=== PATIENT | female | born 1995 | race Caucasian/White ===

== ENCOUNTER 2018-05-28 10:22 | Inpatient (IN) | payer MEDICAID, OTHER ==
[2018-05-28] MEDS ORDERED: OXYTOCIN 10 UNIT/ML 1 ML VIAL IM PRN (10:42)
[2018-05-28] MEDS ORDERED: LIDOCAINE 0.5% (PF) 5 MG/ML (50 ML SDV) SQ PRN (10:42)
[2018-05-28] MEDS ORDERED: TERBUTALINE 1 MG/ML VIAL SQ PRN (10:42)
[2018-05-28] MEDS ORDERED: METHYLERGONOVINE 0.2 MG/ML 1 ML AMP IM PRN (10:42)
[2018-05-28] MEDS ORDERED: CARBOPROST TROMETHAMINE 250 MCG/ML 1 ML AMP IM PRN (10:42)
[2018-05-28] MEDS ORDERED: OXYTOCIN 20 UNITS/1000 ML NS 1,000 ML IV SCH ×2 (10:45→17:45)
[2018-05-28] MEDS ORDERED: AMPICILLIN 2,000 MG in SODIUM CHLORIDE 0.9% 100 ML IVPB STA (10:46)
[2018-05-28 10:53] VITALS: BMI 30.3
[2018-05-28] MEDS: LACTATED RINGERS 1,000 ML IV SCH ×2 (11:17→14:35)
[2018-05-28 11:50] LABS: Basophils % (A) 0 %; Eosinophils # (A) 0.3 k/uL (0-0.7); Eosinophils % (A) 4 %; HCT 38.8 % (34.0-46.0); HGB 12.9 gm/dL (11.4-16.0); Lymphocytes # (A) 1.4 k/uL (1.0-4.8); Lymphocytes % (A) 15 %; MCH 30.8 pg (25.0-35.0); MCHC 33.2 g/dL (31.0-37.0); MCV 92.7 fL (80.0-100.0); Mean Platelet Volume 7.8; Monocytes # (A) 0.5 k/uL (0-1.0); Monocytes % (A) 6 %; Neutrophils # (A) 6.6 k/uL (1.3-7.7); Neutrophils % (A) 73 %; Platelet Count 177 k/uL (150-450); RBC 4.19 m/uL (3.80-5.40); RDW 12.3 % (11.5-15.5)
--- NOTE | 2018-05-28 12:18 | P.HPOB ---
History of Present Illness H&P Date: 05/28/18 Chief Complaint: Advanced cervical dilation This is a 22-year-old female 1 para 0 with an estimated date of confinement of 06/21/2018, estimated gestational age of 36-5/7 weeks, who presents to labor and delivery after being seen in the office and found to be 6 cm. She does complain of irregular contractions and pressure but denies any strong contractions. She denies any loss of fluid. Her cervix last week was 3- 1/2-4 cm. course has been complicated by anxiety issues. She was using marijuana daily for this but did stop at the end of March after having a discussion with me about this. Obstetrical history: . STAGE MANAGER History: No history of sexually transmitted diseases. Social history: She is engaged. She works part-time at [employer]. Review of Systems Constitutional: Denies chills, Denies fever Eyes: denies blurred vision, denies pain Ears, nose, mouth and throat: Denies headache, Denies sore throat Cardiovascular: Denies chest pain, Denies shortness of breath Respiratory: Denies cough Gastrointestinal: Reports abdominal pain (Irregular lower contractions) Genitourinary: Reports pelvic pain, Reports Musculoskeletal: Reports low back pain Integumentary: Denies pruritus, Denies rash Neurological: Denies numbness, Denies weakness Psychiatric: Reports anxiety, Reports depression Past Medical History Past Medical History: Asthma Additional Past Medical History / Comment(s): irritable bowel sydrome History of Any Multi-Drug Resistant Organisms: None Reported Past Surgical History: No Surgical Hx Reported Past Anesthesia/Blood Transfusion Reactions: No Reported Reaction Additional Past Anesthesia/Blood Transfusion Reaction / Comment(s): none Past Psychological History: Anxiety, Depression Smoking Status: Former smoker Past Alcohol Use History: None Reported Additional Past Alcohol Use History / Comment(s): pt quit smoking cigs when she found out she was , pt quit smoking pot in may Past Drug Use History: Cocaine, Marijuana Additional Drug Use History / Comment(s): Cocaine use daily until one year ago when she stopped. - Past Family History Mother Family Medical History: Asthma, Cancer Additional Family Medical History / Comment(s): Mother is alive at age 54 with history of breast cancer and anemia Father Family Medical History: Diabetes Mellitus, Deep Vein Thrombosis (DVT) Additional Family Medical History / Comment(s): Father is alive at age 45 with history of morbid obesity, DVT, diabetes Sister(s) Additional Family Medical History / Comment(s): She has 3 sisters and there is Anxiety and bipolar disorder and possible borderline schizophrenia. Brother(s) Additional Family Medical History / Comment(s): She has one brother that she does not have any contact with. Medications and Allergies Home Medications Medication Instructions Recorded Confirmed Type Men-Ryaa-Xdnic Acid 1 cap PO DAILY 05/28/18 05/28/18 History [-U Capsule (formulary)] Allergies Allergy/AdvReac Type Severity Reaction Status Date / Time No Known Allergies Allergy Verified 09/06/15 22:38 Exam Osteopathic Statement: *. No significant issues noted on an osteopathic structural exam other than those noted in the History and Physical/Consult. Vital Signs Temp Pulse Resp BP 05/28/18 10:40 97.1 F L 87 16 121/70 Intake and Output 05/27/18 05/28/18 05/28/18 22:59 06:59 14:59 Other: Weight 85.275 kg HEENT: Within normal limits Heart: Regular rate and rhythm Lungs: Clear to auscultation bilaterally Abdomen: Cervix: 5-1/2-6 cm/70%/-2 station heart tones: Reactive Contractions: Irregular Extremities: Negative Homans Results Result Diagrams: 05/28/18 11:23 Assessment and Plan (1) 36 weeks gestation of Current Visit: Yes Status: Acute Code(s): Z3A.36 - 36 WEEKS GESTATION OF SNOMED Code(s): 63837769 (2) Group B Streptococcus carrier, +RV culture, currently Current Visit: Yes Status: Acute Code(s): O99.820 - STREPTOCOCCUS B CARRIER STATE COMPLICATING SNOMED Code(s): 1169718974096 Plan: Admission for advanced cervical dilation. Oxytocin augmentation of labor. Antibiotic prophylaxis for group B streptococcus. Expectant management.
[2018-05-28] MEDS ORDERED: SODIUM CHLORIDE 0.9% 100 ML BAG ONE (14:27)
[2018-05-28] MEDS ORDERED: fentaNYL (PF) 50 MCG/ML 5 ML AMP ONE (14:27)
[2018-05-28] MEDS ORDERED: ROPIVACAINE 5MG/ML 20ML VIAL ONE (14:27)
[2018-05-28] MEDS ORDERED: AMPICILLIN 1,000 MG in SODIUM CHLORIDE 0.9% 50 ML IVPB SCH (14:45)
[2018-05-28] MEDS ORDERED: ROPIVACAINE 100 MG, fentaNYL (PF) 200 MCG in SODIUM CHLORIDE 0.9% 76 ML EPIDURAL ONE (14:56)
--- NOTE | 2018-05-28 16:54 | P.PROBDLV ---
Vaginal Delivery Note - . Vaginal Delivery Note: The patient progressed to complete dilation after oxytocin augmentation of labor and artificial rupture membranes with clear fluid noted. She did receive epidural anesthesia. Once reaching complete, she began pushing. Infant's head came to a crown. With one further push, the infant's head delivered across the perineum followed by the anterior shoulder. Nuchal cord times one was reduced around the infant's head and with one further push the remainder the easily delivered and was placed on mother's abdomen. Brisk cry was noted immediately. Nose and mouth were bulb suctioned. Infant was taken to warmer for evaluation by nursing staff. A viable female infant was noted with scores of 8 at 1 minute and 9 at 5 minutes and weight is 5 lbs. 9 oz. Placenta delivered shortly thereafter, intact, with a three-vessel cord. Uterus contracted well after oxytocin was given and uterine massage was carried out. Inspection of the perineum revealed a small first-degree laceration on the right vaginal wall. This area was anesthetized with 1% lidocaine and sutured with 3-0 Vicryl suture in a running locked fashion. Estimated blood loss is approximately 150 mL's. Both mother and infant are in stable condition.
[2018-05-28] MEDS ORDERED: HYDROCORTISONE 2.5% RECTAL CREAM 30 GM TUBE RECTAL PRN (17:45)
[2018-05-28] MEDS ORDERED: diphenhydrAMINE 50 MG/ML 1 ML VIAL IVP PRN ×2 (17:45)
[2018-05-28] MEDS ORDERED: WITCH HAZEL 1 EACH MED..PAD TOPICAL PRN (17:45)
[2018-05-28] MEDS ORDERED: ACETAMINOPHEN TAB 325 MG TAB PO PRN (17:45)
[2018-05-28] MEDS ORDERED: ZOLPIDEM 5 MG TAB PO PRN (17:45)
[2018-05-28] MEDS ORDERED: LANOLIN CREAM 5 GM TUBE TOPICAL PRN (17:45)
[2018-05-28] MEDS ORDERED: IBUPROFEN 600 MG TAB PO PRN (17:45)
[2018-05-28] MEDS ORDERED: diphenhydrAMINE 25 MG CAP PO PRN (17:45)
[2018-05-28] MEDS ORDERED: SIMETHICONE 80 MG CHEWABLE PO PRN (17:45)
[2018-05-28] MEDS ORDERED: BENZOCAINE/MENTHOL SPRAY 1 GM/SPRAY AEROSOL TOPICAL PRN (17:45)
[2018-05-28] MEDS ORDERED: diphenhydrAMINE 50 MG CAP PO PRN (17:45)
[2018-05-28] MEDS: SENNOSIDES-DOCUSATE SODIUM 1 EACH TAB PO SCH (20:13)
--- NOTE | 2018-05-29 08:18 | P.PNOBGVD ---
Subjective - Subjective Principal diagnosis: Status post vaginal delivery day #1 Interval history: Patient is doing well. She is breast-feeding. Lochia is decreasing. Pain is well-controlled. Patient reports: Reports appetite normal, Reports voiding normally, Reports pain well controlled, Reports ambulating normally : doing well, nursing well Objective - Latest Vital Signs Latest vital signs: Vital Signs Temp Pulse Resp BP 05/29/18 07:49 97.9 F 88 20 118/75 05/29/18 04:00 97.7 F 85 16 120/60 05/28/18 23:55 98.0 F 95 16 124/73 05/28/18 18:59 96.8 F L 89 14 122/66 05/28/18 18:29 101 H 14 114/57 05/28/18 17:59 86 12 121/63 05/28/18 17:44 85 12 127/66 05/28/18 17:29 71 14 121/66 05/28/18 17:14 83 14 119/68 05/28/18 16:59 96.9 F L 73 18 129/61 05/28/18 10:40 97.1 F L 87 16 121/70 Intake and Output 05/28/18 05/29/18 05/29/18 22:59 06:59 14:59 Other: # Voids 1 1 - Exam Extremities: Present: normal. Absent: tenderness Abdomen: Present: normal appearance, soft. Absent: distention, tenderness Uterus: Present: normal, firm. Absent: tenderness Assessment and Plan Assessment: Status post vaginal delivery day #1 (1) 36 weeks gestation of Current Visit: Yes Status: Acute Code(s): Z3A.36 - 36 WEEKS GESTATION OF SNOMED Code(s): 74877122 (2) Group B Streptococcus carrier, +RV culture, currently Current Visit: Yes Status: Acute Code(s): O99.820 - STREPTOCOCCUS B CARRIER STATE COMPLICATING SNOMED Code(s): 6607226875732 Plan: Continue with care. Anticipate discharge home tomorrow.
[2018-05-29] MEDS: SENNOSIDES-DOCUSATE SODIUM 1 EACH TAB PO SCH ×2 (08:22→21:14)
[2018-05-29] MEDS: SERTRALINE 25 MG TAB PO SCH (08:22)
[2018-05-29 09:03] LABS: Basophils % (A) 0 %; Eosinophils # (A) 0.4 k/uL (0-0.7); Eosinophils % (A) 3 %; HCT 36.1 % (34.0-46.0); HGB 12.1 gm/dL (11.4-16.0); Lymphocytes # (A) 2.1 k/uL (1.0-4.8); Lymphocytes % (A) 18 %; MCHC 33.5 g/dL (31.0-37.0); MCV 92.5 fL (80.0-100.0); Mean Platelet Volume 7.8; Monocytes # (A) 0.6 k/uL (0-1.0); Monocytes % (A) 5 %; Neutrophils # (A) 8.2 k/uL (1.3-7.7); Neutrophils % (A) 71 %; Platelet Count 192 k/uL (150-450); RDW 12.5 % (11.5-15.5); WBC 11.5 k/uL (3.8-10.6)
[2018-05-29] MEDS ORDERED: PRENATAL VIT-IRON-FOLIC ACID 1 EACH CAP PO SCH (12:00)
--- NOTE | 2018-05-30 05:07 | P.DS ---
Providers Date of admission: 05/28/18 10:22 Expected date of discharge: 05/30/18 Attending physician: Davida Joshi Primary care physician: Stated None - Discharge Diagnosis(es) (1) 36 weeks gestation of Current Visit: Yes Status: Acute (2) Group B Streptococcus carrier, +RV culture, currently Current Visit: Yes Status: Acute Hospital Course: This is a 22-year-old female 1 para 0 at 36-5/7 weeks who presented for oxytocin augmentation of labor after being found to be 6 cm in the office at her visit. She delivered vaginally a viable female on 05/28/2018 with scores of 8 at 1 minute and 9 at 5 minutes and weight of 5 lbs. 9 oz. Her course has been uncomplicated. She was started on Zoloft per her request after delivery. So far she is not having any depression symptoms. Lochia is decreasing. She is breast-feeding. Pain is fairly well controlled without any pain medication. Vital signs are stable. Abdomen is soft with fundus firm and nontender. Extremities show negative Homans. Impression is status post vaginal delivery day #2. Plan is to discharge home today. Routine instructions are given. She is given a prescription for a breast pump. She is also given a prescription for ibuprofen. She is advised to follow up in the office in approximately 2 weeks for a post vaginal check due to her history of depression and also at 6 weeks for check. She is advised to call the office if she has any further questions or concerns prior to her appointment time. I have also advised her to follow up with her family doctor regarding her depression. Procedures: Oxytocin augmentation of labor Spontaneous vaginal delivery of a viable female infant on 05/28/2018 Patient Condition at Discharge: Stable Plan - Discharge Summary Discharge Rx Participant: Yes New Discharge Prescriptions: New Ibuprofen [Motrin] 600 mg PO Q6HR PRN #60 tab PRN Reason: Mild Pain Or Fever >= 100.5 Sertraline [Zoloft] 25 mg PO DAILY #30 tab Continue Tkt-Gawh-[id number] Acid [-U Capsule (formulary)] 1 cap PO DAILY Discharge Medication List Fcg-[id number]-Vkctj Acid [-U Capsule (formulary)] 1 cap PO DAILY [History] Ibuprofen [Motrin] 600 mg PO Q6HR PRN #60 tab 05/30/18 [Rx] Sertraline [Zoloft] 25 mg PO DAILY #30 tab 05/30/18 [Rx] Follow up Appointment(s)/Referral(s): Davida Joshi DO [Doctor of Osteopathic Medicine] - 2 Weeks (Early visit at 2 weeks and normal 6 weeks ) Activity/Diet/Wound Care/Special Instructions: Instructions 1. Do not begin any exercise program for 3 weeks. 2. Do not resume sexual relations for 3 weeks or longer if uncomfortable. 3. You may take tub baths or showers at any time. 4. You may use tampons if desired after 3 weeks. 5. Keep the area of episiotomy (stitches) clean and dry. 6. If you are not nursing, wear a good fitting, supportive bra during the day and limit fluid intake for at least 1 week to prevent breast engorgement. 7. Call the office, [phone], within the next week to make appointment for your 6 week checkup if it has not already been made. 8. Report any of the following occurrences to the doctor promptly: a. Heavy, excessive bleeding b. Chills, fever c. Burning or frequency of urination d. Pain or redness and breasts if nursing e. Increasing pain or swelling in episiotomy (stitches). In addition to the above instructions, the following additional should be followed: 1. No heavy lifting or straining (exercising) until after 6 week checkup. 2. Keep abdominal incision clean and dry: You may wear a dressing if more comfortable. 3. Make office appointment for 10 days after going home or as instructed by her doctor. Discharge Disposition: HOME SELF-CARE
[2018-05-30] MEDS: SENNOSIDES-DOCUSATE SODIUM 1 EACH TAB PO SCH (09:06)
[2018-05-30] MEDS: SERTRALINE 25 MG TAB PO SCH (09:06)
[2018-05-30 10:00] VITALS: RESP 18
[2018-05-30 17:02] VITALS: BP 102/67; PULSE 88; TEMP 98.6
== END 2018-05-30 17:50 | disposition home or self-care (01) | DRG 807 ==
LOC: 4FBP 10:22
PROVIDERS: ADMIT Obstetrics & Gynecology; ATTEND Obstetrics & Gynecology
PROC: 10907ZC Drainage of Amniotic Fluid, Therapeutic from Products of Conception, Via Natural or Artificial Opening (ICD-10-PCS; principal; 2018-05-28)
PROC: 10E0XZZ Delivery of Products of Conception, External Approach (ICD-10-PCS; 2018-05-28)
PROC: 00HU33Z Insertion of Infusion Device into Spinal Canal, Percutaneous Approach (ICD-10-PCS; 2018-05-28)
PROC: 3E0R3NZ Introduction of Analgesics, Hypnotics, Sedatives into Spinal Canal, Percutaneous Approach (ICD-10-PCS; 2018-05-28)
PROC: 0HQ9XZZ Repair Perineum Skin, External Approach (ICD-10-PCS; 2018-05-28)
DX: O60.14X0 Preterm labor third trimester with preterm delivery third trimester, not applicable or unspecified (principal); Z37.0 Single live birth; O99.824 Streptococcus B carrier state complicating childbirth; O99.344 Other mental disorders complicating childbirth; F41.9 Anxiety disorder, unspecified; F32.9 Major depressive disorder, single episode, unspecified; K58.9 Irritable bowel syndrome, unspecified; O99.62 Diseases of the digestive system complicating childbirth; Z3A.36 36 weeks gestation of pregnancy; O69.81X0 Labor and delivery complicated by cord around neck, without compression, not applicable or unspecified; O70.0 First degree perineal laceration during delivery; Z87.891 Personal history of nicotine dependence; Z87.09 Personal history of other diseases of the respiratory system
CPT/HCPCS: 85025; 86850; 86900; 86901; 88307

== ENCOUNTER 2020-02-07 17:46 | Inpatient (IN) | payer MEDICAID, OTHER ==
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
[2020-02-07] MEDS ORDERED: LORazepam 2 MG/ML INJ IM PRN (20:27)
[2020-02-07] MEDS ORDERED: ZIPRASIDONE 20 MG VIAL IM PRN (22:23)
[2020-02-07] MEDS ORDERED: ACETAMINOPHEN TAB 325 MG TAB PO PRN (22:23)
[2020-02-07] MEDS ORDERED: MAGNESIUM HYDROXIDE 2,400 MG/10 ML CUP PO PRN (22:23)
[2020-02-07] MEDS ORDERED: MAG HYDROX/AL HYDROX/SIMETH 30 ML CUP PO PRN (22:23)
[2020-02-07] MEDS ORDERED: LORazepam 1 MG TAB PO PRN (22:23)
[2020-02-08 00:28] LABS: Appearance,Urine Clear (Clear); Bacteria,Urine Rare /hpf; Bilirubin,Urine Negative (Negative); Blood,Urine Negative (Negative); Color,Urine Yellow; Glucose,Urine (UA) Negative (Negative); Ketones,Urine 1+ (Negative); Leukocyte Esterase,Urine Small (Negative); Mucus,Urine Many /hpf; Nitrite,Urine Negative (Negative); PH, Urine 6.5 (5.0-8.0); Protein,Urine Trace (Negative); RBC,Urine 3 /hpf (0-5); Specific Gravity,Urine 1.032 (1.001-1.035); Squamous Epithelial Cell,Urine 3 /hpf (0-4); Urobilinogen,Urine <2.0 mg/dL (<2.0); WBC,Urine 10 /hpf (0-5)
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
[2020-02-08 03:13] LABS: Urine Alcohol Negative (Negative); Urine Barbiturate Negative (Negative); Urine Cocaine Negative (Negative); Urine Methadone Negative (Negative); Urine Opiates Negative (Negative); Urine Phencyclidine Negative (Negative)
[2020-02-08 07:52] LABS: Basophils # (A) 0.1 k/uL (0-0.2); Basophils % (A) 1 %; Eosinophils # (A) 0.6 k/uL (0-0.7); Eosinophils % (A) 7 %; HCT 45.1 % (34.0-46.0); HGB 14.8 gm/dL (11.4-16.0); Lymphocytes # (A) 2.2 k/uL (1.0-4.8); Lymphocytes % (A) 25 %; MCH 31.7 pg (25.0-35.0); MCHC 32.9 g/dL (31.0-37.0); MCV 96.4 fL (80.0-100.0); Mean Platelet Volume 7.6; Monocytes # (A) 0.6 k/uL (0-1.0); Monocytes % (A) 6 %; Neutrophils # (A) 5.3 k/uL (1.3-7.7); Neutrophils % (A) 60 %; Platelet Count 235 k/uL (150-450); RBC 4.68 m/uL (3.80-5.40); RDW 12.2 % (11.5-15.5); WBC 8.8 k/uL (3.8-10.6)
[2020-02-08 08:06] LABS: ALT 12 U/L (4-34); AST 25 U/L (14-36); African American GFR (CKD) >90 (>60 ml/min/1.73 sqM); Albumin 4.3 g/dL (3.5-5.0); Alkaline Phosphatase 51 U/L (38-126); Anion Gap 9 mmol/L; Blood Urea Nitrogen 12 mg/dL (7-17); Calcium 9.4 mg/dL (8.4-10.2); Carbon Dioxide 27 mmol/L (22-30); Chloride 103 mmol/L (98-107); Cholesterol 106 mg/dL (<200); Glucose 68 mg/dL (74-99); HDL Cholesterol 45 mg/dL (40-60); LDL Cholesterol,Calculated 51 mg/dL (0-99); Non-African American GFR(CKD) >90 (>60 ml/min/1.73 sqM); Sodium 139 mmol/L (137-145); Total Bilirubin 0.7 mg/dL (0.2-1.3); Total Protein 6.7 g/dL (6.3-8.2); Triglycerides 49 mg/dL (<150)
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
[2020-02-08] MEDS ORDERED: INFLUENZA VACCINE (6 MOS+) 60 MCG/0.5 ML SYRINGE IM ONE (09:30)
[2020-02-08] MEDS: ARIPiprazole 5 MG TAB PO SCH (10:36)
[2020-02-08] MEDS: SERTRALINE 25 MG TAB PO SCH (10:37)
[2020-02-08] MEDS ORDERED: PNEUMOCOCCAL VACC-PNEUMOVAX 23 25 MCG/0.5 ML VIAL IM ONE (11:06)
[2020-02-08 13:45] LABS: Hemoglobin A1C 5.3 % (4.0-6.0)
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
[2020-02-09] MEDS ORDERED: PNEUMOCOCCAL VACC-PNEUMOVAX 23 25 MCG/0.5 ML VIAL IM ONE (09:30)
[2020-02-09] MEDS: SERTRALINE 25 MG TAB PO SCH (09:54)
[2020-02-09] MEDS: ARIPiprazole 5 MG TAB PO SCH (09:54)
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
[2020-02-09] MEDS ORDERED: SERTRALINE 50 MG TAB PO STA (10:39)
[2020-02-09] MEDS ORDERED: ARIPiprazole 10 MG TAB PO STA (10:39)
[2020-02-10] MEDS ORDERED: ARIPiprazole 10 MG TAB PO SCH (09:00)
[2020-02-10] MEDS ORDERED: SERTRALINE 50 MG TAB PO SCH (09:00)
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
[2020-02-11] MEDS: ARIPiprazole 15 MG TAB PO SCH (07:53)
[2020-02-11] MEDS: SERTRALINE 100 MG TAB PO SCH (07:53)
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
[2020-02-11] MEDS ORDERED: LORazepam 2 MG/ML INJ IM PRN (23:56)
[2020-02-12] MEDS: ARIPiprazole 15 MG TAB PO SCH ×2 (09:03→21:32)
[2020-02-12] MEDS: SERTRALINE 100 MG TAB PO SCH (09:03)
[2020-02-12] MEDS: hydrOXYzine pamoate 25 MG CAP PO SCH ×2 (09:04→16:27)
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
[2020-02-12] MEDS ORDERED: hydrOXYzine pamoate 25 MG CAP PO PRN (10:01)
[2020-02-13] MEDS: hydrOXYzine pamoate 25 MG CAP PO SCH ×3 (01:10→15:16)
[2020-02-13] MEDS: ARIPiprazole 15 MG TAB PO SCH ×2 (08:54→21:02)
[2020-02-13] MEDS: SERTRALINE 100 MG TAB PO SCH (08:55)
--- NOTE | 2020-02-13 10:18 | P.PN ---
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"patient talked in detail about her current delusional thinking as she does believe one of night auditornight manager working in ""[employer]",I tried to question her reality and her perception of thing but she replied "I do remember faces ,I know I saw him before "sexually preoccupied,,illogical and bizarre at times Mental status exam: Patient was wearing her own clothing,hygiene and grooming are fair,denies any hallucination, endorses delusional thinking as above ,paranoia ,suspicious ,speech is spontaneous ,coherent ,, alert to person and place ,denies suicidal or homicidal ideation ,very concrete in his thinking insight and judgment are limited ASSESSMENT :Major depression ,recurrent with psychotic features ,PTSD ,Cannabis use disoder PLAN: Patient continues to meet criteria for inpatient psychiatric admission for symptom stabilization and safety continue Zoloft 100 mg for depression increase Abilify 15 mg BID for thought disorder ,patient agreed to long acting Abilify ,Abilify Maintaina 400 mg IM TODAY,prn Ativan ,SW on board for d/c plan URINE CULTURE IS PENDING
[2020-02-13] MEDS ORDERED: ARIPiprazole IM SYRINGE 400 MG (NO CHARGE) PHARMACY STOCK IM ONE (11:00)
[2020-02-13] MEDS: NICOTINE POLACRILEX 2 MG GUM BUCCAL PRN (11:42)
[2020-02-13 15:00] VITALS: BMI 22.4
[2020-02-14] MEDS: hydrOXYzine pamoate 25 MG CAP PO SCH ×4 (00:18→23:41)
[2020-02-14] MEDS: SERTRALINE 100 MG TAB PO SCH (07:46)
[2020-02-14] MEDS: ARIPiprazole 15 MG TAB PO SCH ×2 (07:46→20:43)
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
[2020-02-14] MEDS: NICOTINE POLACRILEX 2 MG GUM BUCCAL PRN (18:32)
[2020-02-15] MEDS: hydrOXYzine pamoate 25 MG CAP PO SCH ×3 (08:34→22:59)
[2020-02-15] MEDS: ARIPiprazole 15 MG TAB PO SCH ×2 (08:34→20:41)
[2020-02-15] MEDS: SERTRALINE 100 MG TAB PO SCH (08:34)
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
[2020-02-15] MEDS: NICOTINE POLACRILEX 2 MG GUM BUCCAL PRN ×2 (13:52→20:36)
[2020-02-16 03:36] VITALS: RESP 16
[2020-02-16] MEDS: SERTRALINE 100 MG TAB PO SCH (08:31)
[2020-02-16] MEDS: hydrOXYzine pamoate 25 MG CAP PO SCH ×3 (08:31→23:07)
[2020-02-16] MEDS: ARIPiprazole 15 MG TAB PO SCH ×2 (08:31→21:48)
[2020-02-16] MEDS: NICOTINE POLACRILEX 2 MG GUM BUCCAL PRN ×2 (10:27→18:42)
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
[2020-02-17] MEDS: hydrOXYzine pamoate 25 MG CAP PO SCH ×2 (08:40→16:42)
[2020-02-17] MEDS: SERTRALINE 100 MG TAB PO SCH (08:41)
[2020-02-17] MEDS: ARIPiprazole 15 MG TAB PO SCH ×2 (08:41→22:36)
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
[2020-02-18] MEDS: hydrOXYzine pamoate 25 MG CAP PO SCH ×4 (05:23→23:56)
[2020-02-18] MEDS: ARIPiprazole 15 MG TAB PO SCH ×2 (09:16→20:15)
[2020-02-18] MEDS: ESCITALOPRAM 20 MG TAB PO SCH (09:17)
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
[2020-02-19 07:13] VITALS: BP 113/58; PULSE 87; TEMP 98
[2020-02-19] MEDS: hydrOXYzine pamoate 25 MG CAP PO SCH ×2 (08:27→15:47)
[2020-02-19] MEDS: ARIPiprazole 15 MG TAB PO SCH (08:27)
[2020-02-19] MEDS: ESCITALOPRAM 20 MG TAB PO SCH (08:27)
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
[2020-02-19] MEDS: NICOTINE POLACRILEX 2 MG GUM BUCCAL PRN (15:46)
== END 2020-02-19 17:43 | disposition home or self-care (01) | DRG 885 ==
LOC: EC 17:46 → 3MHU 22:18
PROVIDERS: ADMIT Psychiatry & Neurology Psychiatry; ATTEND Psychiatry & Neurology Psychiatry
DX: F33.3 Major depressive disorder, recurrent, severe with psychotic symptoms (principal); J45.909 Unspecified asthma, uncomplicated; F17.210 Nicotine dependence, cigarettes, uncomplicated; F43.10 Post-traumatic stress disorder, unspecified; R63.6 Underweight; L40.9 Psoriasis, unspecified; F12.10 Cannabis abuse, uncomplicated; Z82.5 Family history of asthma and other chronic lower respiratory diseases; Z81.8 Family history of other mental and behavioral disorders; Z79.899 Other long term (current) drug therapy; Z83.3 Family history of diabetes mellitus; Z91.19 Patient's noncompliance with other medical treatment and regimen; Z82.49 Family history of ischemic heart disease and other diseases of the circulatory system; Z80.3 Family history of malignant neoplasm of breast; Z83.2 Family history of diseases of the blood and blood-forming organs and certain disorders involving the immune mechanism; Z59.0 Homelessness; Z68.23 Body mass index [BMI] 23.0-23.9, adult; Z91.410 Personal history of adult physical and sexual abuse
CPT/HCPCS: 80053; 80061; 80306; 81001; 81025; 82075; 83036; 84443; 85025; 90686; 90732; 99285